=== PATIENT | female | born 1945 | race Caucasian/White ===

== ENCOUNTER → 2016-10-15 | Outpatient (CLI) | payer MEDICARE, OTHER ==
[~2016-10-15] VITALS: Ht 157.5 cm; Wt 68.1 kg
[~2016-10-15] MED LIST: AMOX-351 PO; CALC-946 PO; DOCU-168 PO; HYDR-4246 PO; LEVO50TA69 PO; LISI30TA4 PO; NORT25CA3 PO; PANT40TA PO; REGADENOSON 0.4mg/5ml INJECTION IV ONE; SALINE FLUSH 10ml SYRINGE ONE; SUCR1TAB20 PO; [UNRECOGNIZED DRUG - CODE] PO; [UNRECOGNIZED DRUG - CODE] PO
--- NOTE | 2016-10-16 10:36 | ESTF ---
PHARMACOLOGICAL STRESS NUCLEAR SCAN DATE 10/15/2016 INDICATION Atypical chest pain. PROCEDURE Patient was unable to fully exercise on the treadmill, anticipating back surgery. She presented with chest pain, atypical, and needing cardiac clearance. She underwent Technetium-99m Myoview dose of 13.2 mCi at rest and Lexiscan 0.4 mg over 10-20 seconds followed by Technetium-99m Myoview dose of 32 mCi. She experienced a transient chest pressure without radiation that resolved spontaneously. Rest EKG showed sinus rhythm 65 beats per minute, nonspecific T-wave abnormality in inferolateral leads. During pharmacological stress, continued to be nonspecific ST-T abnormality with minimal ST depression, less than 0.5 mm in inferolateral leads, up to 1 mm only in lead 2. These changes did not meet the EKG criteria for ischemia. Stress and rest perfusion images were reviewed. Myocardial perfusion images were considered within normal limits without any significant ischemia or scar. Gated images were normal. Normal wall motion. Ejection fraction 79% on stress images and 78% on rest images. No abnormal extracardiac uptake was noted on rotatogram although significant breast tissue attenuation was present. Blood pressure was 172/92, heart rate 65 beats per minute. Blood pressure peaked at 206/98, subsequently in recovery 231/94 and then was trending back down. Heart rate peaked at 103 beats per minute which is 69% of age-predicted maximum heart rate. IMPRESSION 1. Pharmacological stress nuclear scan clinically associated with chest pain. This is nonspecific. 2. Electrically nonspecific ST-T abnormalities, they don't meet the criteria for ischemia. 3. Scintigraphically normal myocardial perfusion scan with normal gated images, normal ejection fraction. [facility]
== END ==
LOC: IMA 09:06
PROVIDERS: ATTEND Internal Medicine Cardiovascular Disease
DX: R07.89 Other chest pain (principal)
CPT/HCPCS: 78452; 93017; A9502; J2785

== ENCOUNTER → 2016-11-04 | Outpatient (CLI) | payer MEDICARE, OTHER ==
[~2016-11-04] MED LIST changes: -REGADENOSON 0.4mg/5ml INJECTION IV ONE; -SALINE FLUSH 10ml SYRINGE ONE
[2016-11-04 16:12] LABS: BASOPHILS % (AUTO) 0.4 % (0-2); EOSINOPHILS # (AUTO) 0.1 T/MM3 (0-0.5); EOSINOPHILS % (AUTO) 0.8 % (0-4); HCT - HEMATOCRIT 43.1 % (36-46); HGB - HEMOGLOBIN 14.2 GM/DL (12-16); IMMATURE GRANULOCYTE # (AUTO) 0.02 T/MM3 (0.00-0.03); IMMATURE GRANULOCYTE % (AUTO) 0.3 % (0.0-0.5); LYMPHOCYTES # (AUTO) 2.4 T/MM3 (1-4.8); LYMPHOCYTES % (AUTO) 33.3 % (23-45); MEAN CORPUSCULAR HGB 29.6 UUG (26-34); MEAN CORPUSCULAR HGB CONC(MCHC 32.9 GM/DL (31-37); MEAN CORPUSCULAR VOLUME 89.8 UM3 (80-100); MEAN PLATELET VOLUME 9.2 UM3 (9.4-12.4); MONOCYTES # (AUTO) 0.3 T/MM3 (0-0.8); MONOCYTES % (AUTO) 4.6 % (0-9.0); NEUTROPHILS #(AUTO)-ABSOLUTE 4.4 T/MM3 (1.8-7.7); NEUTROPHILS % (AUTO) 60.6 % (33-66); WBC - WHITE BLOOD COUNT 7.3 T/MM3 (4.5-11.0)
[2016-11-04 16:24] LABS: ALBUMIN 4.4 G/DL (3.5-5.0); ALBUMIN/GLOBULIN RATIO 1.7 RATIO (1.1-2.2); ALKALINE PHOSPHATASE 110 U/L (38-126); ALT (SGPT) 37 U/L (9-52); ANION GAP 14 MEQ/L (5-15); AST (SGOT) 19 U/L (14-36); BUN/CREATININE RATIO 25 RATIO (6-26); CALCIUM 10.4 MG/DL (8.4-10.2); CHLORIDE 109 MEQ/L (98-107); CO2 - CARBON DIOXIDE 27 MEQ/L (22-30); CREATININE 0.6 MG/DL (0.7-1.2); GLOMERULAR FILTRATION RATE 98; GLUCOSE 100 MG/DL (65-110); LDH 423 U/L (313-618); MAGNESIUM 2.1 MG/DL (1.6-2.3); POTASSIUM 3.8 MEQ/L (3.6-5); SODIUM 150 MEQ/L (134-144)
[2016-11-04 16:55] LABS: THYROID STIM HORMONE-TSH 1.17 MIU/L (0.47-4.68)
== END ==
LOC: LAB 15:35
PROVIDERS: ATTEND Internal Medicine Hematology & Oncology
DX: E03.9 Hypothyroidism, unspecified (principal); E21.3 Hyperparathyroidism, unspecified
CPT/HCPCS: 36415; 80053; 83615; 83735; 83970; 84439; 84443; 84481; 85025